=== PATIENT | female | born 1945 | race Caucasian/White ===

== ENCOUNTER 2019-01-31 21:43 | Inpatient (IN) | payer MEDICARE ==
[~2019-01-31] VITALS: Ht 152.4 cm; Wt 62.0 kg
[2019-01-31] MEDS ORDERED: HCTZ (21:50)
[2019-01-31] MEDS ORDERED: VITAMINS (21:50)
[2019-01-31] MEDS ORDERED: SIMV20TA3 PO (21:50)
[2019-01-31] MEDS ORDERED: LISI-167 PO (21:50)
--- NOTE | 2019-01-31 22:21 | NUR ---
BREAK RN, IV ESTABLISHED AND BLOOD SENT TO LAB. PT AWAITING CT. DAUGHTER AT BEDSIDE. CALL LIGHT WITHIN REACH
[2019-01-31 22:28] LABS: BASOPHILS # (AUTO) 0.02 x10^3/uL (0-0.1); BASOPHILS % (AUTO) 0 % (0-1); EOSINOPHILS # (AUTO) 0.09 x10^3/uL (0-0.4); EOSINOPHILS % (AUTO) 1 % (1-7); LYMPHOCYTES % (AUTO) 12 % (22-44); MD NO; MEAN CORPUSCULAR HEMOGLOBIN 32.6 pg (27.0-34.8); MEAN CORPUSCULAR HGB CONC 34.1 g/dL (32.4-35.8); MEAN CORPUSCULAR VOLUME 95.6 fL (80-100); MEAN PLATELET VOLUME 8.3 fL (7.4-10.4); MONOCYTES # (AUTO) 0.61 x10^3/uL (0.2-0.8); MONOCYTES % (AUTO) 5 % (2-9); NEUTROPHILS # (AUTO) 10.87 x10^3/uL (1.8-6.8); NEUTROPHILS % (AUTO) 82 % (42-75); PLATELET COUNT 233 x10^3/uL (130-400); RED BLOOD COUNT 4.47 x10^6/uL (3.82-5.3); RED CELL DISTRIBUTION WIDTH 12.1 % (9.6-15.2)
[2019-01-31 22:36] LABS: ALANINE AMINOTRANSFERASE 24 U/L (12-78); ALBUMIN 3.8 g/dL (3.4-5.0); ANION GAP 9 mmol/L (5-15); CALCIUM 8.7 mg/dL (8.5-10.1); CHLORIDE 101 mmol/L (98-107)
[2019-01-31 22:38] LABS: ALKALINE PHOSPHATASE 42 U/L (45-117); TOTAL PROTEIN 7.2 g/dL (6.4-8.2)
[2019-01-31 22:39] LABS: INTERNATIONAL NORMALIZED RATIO 0.98 (0.93-1.1); PROTHROMBIN TIME 10.3 Seconds (9.6-11.5)
--- NOTE | 2019-01-31 22:45 | NUR ---
Pt to imaging, with tech, via [place].
--- NOTE | 2019-01-31 23:12 | NUR ---
Dr. Rodríguez at bedside to discuss ED findings and POC.
--- NOTE | 2019-01-31 23:13 | NUR ---
IV ABX order acknowledged, blood cultures to be drawn prior to admin.
[2019-01-31] MEDS ORDERED: METRONIDAZOLE PMX 500MG/100ML 100 ML IVPB ONE (23:30)
[2019-01-31] MEDS ORDERED: CIPROFLOXACIN/PMX 400MG/200ML 100 ML IVPB ONE (23:30)
--- NOTE | 2019-01-31 23:37 | NUR ---
Labs drawn. EKG complete.
[2019-01-31] MEDS ORDERED: CIPROFLOXACIN/PMX 400MG/200ML 200 ML ONE (23:44)
--- NOTE | 2019-01-31 23:53 | NUR ---
IV ABX started. Pt aware of plan for admission.
[2019-02-01] MEDS ORDERED: NS IV SCH (00:20)
[2019-02-01] MEDS ORDERED: KCL IV SCH (00:20)
[2019-02-01] MEDS ORDERED: hydrALAzine 20 MG/ML, 1ML IVPush PRN (00:30)
[2019-02-01] MEDS ORDERED: morphine SULFATE 10 MG/ML, 1ML IVPush PRN ×2 (00:30→01:08)
[2019-02-01] MEDS ORDERED: ONDANSETRON 2MG/ML, 2ML IVPush PRN (00:30)
[2019-02-01] MEDS ORDERED: ACETAMINOPHEN 325 MG TABLET PO PRN (00:30)
[2019-02-01 01:00] VITALS: BP 130/74
[2019-02-01] MEDS: NS + 20MEQ KCL 1,000 ML IV SCH ×2 (01:30→16:18)
[2019-02-01] MEDS: METRONIDAZOLE PMX 500MG/100ML 100 ML IV SCH ×3 (01:44→16:18)
[2019-02-01 01:45] VITALS: BP 130/74
[2019-02-01] MEDS: CEFTRIAXONE PMX 2GM/50ML 50 ML IV SCH (02:49)
[2019-02-01] MEDS ORDERED: OMNIPAQUE 350 MG/ML, 100ML BOTTLE ONE (04:58)
[2019-02-01 05:58] LABS: BASOPHILS # (AUTO) 0.03 x10^3/uL (0-0.1); BASOPHILS % (AUTO) 0 % (0-1); EOSINOPHILS # (AUTO) 0.06 x10^3/uL (0-0.4); EOSINOPHILS % (AUTO) 1 % (1-7); LYMPHOCYTES % (AUTO) 13 % (22-44); MD NO; MEAN CORPUSCULAR HEMOGLOBIN 32.7 pg (27.0-34.8); MEAN CORPUSCULAR HGB CONC 34.3 g/dL (32.4-35.8); MEAN CORPUSCULAR VOLUME 95.4 fL (80-100); MEAN PLATELET VOLUME 8.5 fL (7.4-10.4); MONOCYTES # (AUTO) 0.47 x10^3/uL (0.2-0.8); MONOCYTES % (AUTO) 4 % (2-9); NEUTROPHILS % (AUTO) 82 % (42-75); PLATELET COUNT 216 x10^3/uL (130-400); RED CELL DISTRIBUTION WIDTH 12.3 % (9.6-15.2)
[2019-02-01] MEDS ORDERED: PANTOPRAZOLE 40 MG IV IVPush SCH (09:00)
[2019-02-01] MEDS ORDERED: POTASSIUM CHLORIDE 40 MEQ in SODIUM CHLORIDE 0.9% 500 ML IV ONE (09:30)
[2019-02-01] MEDS: LISINOPRIL 10 MG TABLET PO SCH ×2 (09:30→20:47)
[2019-02-01 09:36] VITALS: BP 136/77
[2019-02-01 11:08] LABS: ANION GAP 4 mmol/L (5-15); CALCIUM 8.3 mg/dL (8.5-10.1); CHLORIDE 108 mmol/L (98-107); CREATININE 0.62 mg/dL (0.55-1.02)
[2019-02-01 13:30] VITALS: BP 117/74
[2019-02-01 19:55] VITALS: BP 133/73
[2019-02-01] MEDS ORDERED: SIMVASTATIN 20 MG TABLET PO SCH (21:00)
[2019-02-02] MEDS: CEFTRIAXONE PMX 2GM/50ML 50 ML IV SCH (00:05)
[2019-02-02] MEDS: METRONIDAZOLE PMX 500MG/100ML 100 ML IV SCH ×3 (01:21→15:04)
[2019-02-02 01:34] VITALS: BP 132/72
[2019-02-02] MEDS: NS + 20MEQ KCL 1,000 ML IV SCH (04:20)
[2019-02-02 05:49] LABS: BASOPHILS # (AUTO) 0.06 x10^3/uL (0-0.1); BASOPHILS % (AUTO) 1 % (0-1); EOSINOPHILS # (AUTO) 0.18 x10^3/uL (0-0.4); EOSINOPHILS % (AUTO) 2 % (1-7); LYMPHOCYTES # (AUTO) 1.22 x10^3/uL (1-3.4); LYMPHOCYTES % (AUTO) 14 % (22-44); MD NO; MEAN CORPUSCULAR HEMOGLOBIN 32.9 pg (27.0-34.8); MEAN CORPUSCULAR HGB CONC 34.6 g/dL (32.4-35.8); MEAN CORPUSCULAR VOLUME 95.3 fL (80-100); MEAN PLATELET VOLUME 8.1 fL (7.4-10.4); MONOCYTES # (AUTO) 0.46 x10^3/uL (0.2-0.8); MONOCYTES % (AUTO) 5 % (2-9); NEUTROPHILS # (AUTO) 7.13 x10^3/uL (1.8-6.8); NEUTROPHILS % (AUTO) 79 % (42-75); PLATELET COUNT 210 x10^3/uL (130-400); RED BLOOD COUNT 3.69 x10^6/uL (3.82-5.3); RED CELL DISTRIBUTION WIDTH 12.4 % (9.6-15.2)
[2019-02-02 06:02] LABS: ALANINE AMINOTRANSFERASE 18 U/L (12-78); ALBUMIN 2.8 g/dL (3.4-5.0); ANION GAP 4 mmol/L (5-15); CALCIUM 8.3 mg/dL (8.5-10.1); CHLORIDE 115 mmol/L (98-107); CREATININE 0.61 mg/dL (0.55-1.02)
[2019-02-02 06:04] LABS: ALKALINE PHOSPHATASE 39 U/L (45-117); BILIRUBIN,TOTAL 0.3 mg/dL (0.2-1.0); TOTAL PROTEIN 5.6 g/dL (6.4-8.2)
[2019-02-02 06:46] VITALS: BP 131/76
[2019-02-02 13:39] VITALS: BP 113/69
[2019-02-02] MEDS ORDERED: METR-90 PO (14:44)
[2019-02-02] MEDS ORDERED: CIPR500T3 PO (14:44)
== END 2019-02-02 16:35 | disposition home or self-care (01) | DRG 871 ==
LOC: ED 23:34 → EDIP 23:57 → 3NE 02-01 00:54
PROVIDERS: ADMIT Family Medicine; ATTEND Family Medicine
DX: A41.9 Sepsis, unspecified organism (principal); K25.4 Chronic or unspecified gastric ulcer with hemorrhage; E87.1 Hypo-osmolality and hyponatremia; K52.9 Noninfective gastroenteritis and colitis, unspecified; E86.0 Dehydration; E78.5 Hyperlipidemia, unspecified; E87.6 Hypokalemia; I10 Essential (primary) hypertension; Z79.899 Other long term (current) drug therapy; Z90.49 Acquired absence of other specified parts of digestive tract
CPT/HCPCS: 36415; 74177; 80048; 80053; 83605; 83735; 85025; 85610; 86850; 86900; 87040; 93005; 96365; 99285; G0378; J0696; J0744; J3480; Q9967; C9113; J7040